=== PATIENT | male | born 1945 | race Caucasian/White ===

== ENCOUNTER 2017-07-08 13:27 | Day surgery (SDC) | payer MEDICARE, SELFPAY ==
[2017-07-08] VITALS (7 sets, daily range): BP systolic 110–170; BP diastolic 66–82; PULSE 72–83; RESP 16–18; TEMP 36–36.2; O2SAT 93–96; BMI 50.3
[2017-07-08 14:06] LABS: Bedside Glucose 265 mg/dL (70-110)
--- NOTE | 2017-07-08 14:30 | RAD_ITS ---
STUDY: X-RAY - LUMBAR SPINE REASON FOR EXAM: Male, 72 years old. Radiofrequency ablation. TECHNIQUE: 9 intraoperative view(s) of the lumbar spine were obtained. COMPARISON: MRI July 16, 2016. FINDINGS: Intraoperative fluoroscopy utilized for 0 minutes 18.4 seconds during radiofrequency ablation with placement of 4 needles. RAD/Lumbar Spine 2 or 3 Views IMPRESSION: Intraoperative fluoroscopy. Electronically Signed: Varghese Walters MD at 16:38 EST , Service support ,
[2017-07-08] MEDS: Bupivacaine 0.25% 30 ML Vial (14:41)
[2017-07-08] MEDS: MethylPREDNISolone Acetate 80 MG/ML Vial (14:41)
--- NOTE | 2017-07-08 16:19 | PCM.OPRPT ---
Problem List (1) Lumbar degenerative disc disease Status: Chronic (2) Lumbar facet arthropathy Status: Chronic (3) Lumbar spondylosis Status: Chronic Report of Operation Date of Procedure: 07/08/17 Pre-Operative Diagnosis: Lumbosacral spondylosis, lumbosacral degenerative disc disease, lumbar facet arthropathy Post-Operative Diagnosis: Lumbosacral spondylosis, lumbosacral degenerative disc disease, lumbar facet arthropathy Surgery/Procedure Performed:: Left-sided lumbar radiofrequency ablation of the medial branch L3, L4, L5, S1. Description of Surgical Findings:: PROCEDURE: Left-sided radiofrequency ablation of the medial branch L3, L4, L5, S1 PREOPERATIVE DIAGNOSES: Lumbosacral spondylosis, lumbosacral degenerative disc disease, lumbar facet arthropathy POSTOPERATIVE DIAGNOSES: Lumbosacral spondylosis, lumbosacral degenerative disc disease, lumbar facet arthropathy ANESTHESIA: MAC COMPLICATIONS: None BLOOD LOSS: Minimal PROCEDURE IN DETAIL: History and physical today was reviewed. Risks and benefits of procedure explained. The patient understood, agreed to the procedure and informed consent was obtained. IV inserted per routine protocol. The patient was taken to the operating room, placed in the prone position with a pillow positioned underneath the abdomen. The left side of the lower back was prepped and draped in a sterile fashion using iodine x 3. Under fluoroscopy guidance, on an oblique view, the L3 through S1 vertebral bodies were visualized. The skin and subcutaneous tissue was anesthetized with approximately 10 mL of 1% lidocaine using a 25-gauge regular needle. Under direct visualization with fluoroscopy at approximately 25-degree angle, starting on the left L3, ending on the left S1 passing through the L4-L5 using a 20-gauge 15 cm with a 10 mm curved active tip radiofrequency ablation needle the needle passed through the skin. The tip of the needle was maneuvered and directed towards the superior and medial gutter of the transverse process at the vicinity of the medial branch. Once the tip of the needle was in contact with the bone, the needle pulled approximately 2 mm up the bone. The stylet of each needle was then removed. After negative aspiration of blood with CSF and confirmation of AP as well as oblique view, radiofrequency ablation probe was then inserted at each level. Impedance was then recorded at L3 to be 222, at L4 254, at L5 257, at S1 215 ohm. Motor-evoked potential was then initiated to 1.5 volt without any motor response at each corresponding level. The probe was then removed intact and a total of 6 mL preservative-free 1% lidocaine was injected in divided doses between those 4 levels after negative aspiration of blood with CSF. The radiofrequency ablation probe was then reinserted after confirmation of AP, oblique as well as lateral view. Radiofrequency ablation was then initiated to 80 degrees Celsius for 90 seconds at each level. Once concluded, the probe was then removed intact and a total of 6 mL of preservative-free 0.25% Marcaine with 40 mg Depo-Medrol was injected in divided doses between those 4 levels. The needles were then removed intact. The patient experienced no signs or symptoms of intrathecal, intravascular injection. The patient experienced no paraesthesia. The procedure was completed without any apparent difficulty, any complication. The patient appeared to tolerate well. Sensory as well as motor exam was unchanged from prior to procedure. ASSESSMENT AND PLAN: This is a 72-year-old Male with lumbosacral spondylosis, lumbosacral degenerative disc disease, lumbar facet arthropathy, status post left-sided radiofrequency ablation of the medial branch L3 through S1. The patient will continue his current medications. The patient will follow up in approximately 2 weeks for reevaluation.
== END 2017-07-08 15:50 | disposition home or self-care (01) ==
LOC: SDC 13:28 → AC 13:29
PROVIDERS: Family Provider Family Medicine; PCP Family Medicine; Visit Provider Anesthesiology Pain Medicine
PROC: (CPT 64635; principal; 2017-07-08 15:10)
DX: M51.36 Other intervertebral disc degeneration, lumbar region (principal); M46.96 Unspecified inflammatory spondylopathy, lumbar region; M47.896 Other spondylosis, lumbar region; M51.37 Other intervertebral disc degeneration, lumbosacral region; M48.07 Spinal stenosis, lumbosacral region; M54.17 Radiculopathy, lumbosacral region; I10 Essential (primary) hypertension; Z87.891 Personal history of nicotine dependence; E11.9 Type 2 diabetes mellitus without complications; Z79.4 Long term (current) use of insulin; Z79.84 Long term (current) use of oral hypoglycemic drugs; K21.9 Gastro-esophageal reflux disease without esophagitis; G47.33 Obstructive sleep apnea (adult) (pediatric); E78.00 Pure hypercholesterolemia, unspecified; Z86.711 Personal history of pulmonary embolism; Z79.82 Long term (current) use of aspirin; Z79.891 Long term (current) use of opiate analgesic; Z79.899 Other long term (current) drug therapy
CPT/HCPCS: 64635; 64636 ×2; 72100; 76000; 82962; J7120

== ENCOUNTER 2017-08-19 05:31 | Day surgery (SDC) | payer MEDICARE, SELFPAY ==
[2017-08-19 06:11] VITALS: BP 153/73; PULSE 64; TEMP 36.4; O2SAT 95; BMI 50.9
[2017-08-19 06:26] LABS: Bedside Glucose 102 mg/dL (70-110)
--- NOTE | 2017-08-19 07:30 | RAD_ITS ---
CLINICAL HISTORY: Male, 72 years old. Lower back pain PROCEDURE: EPIDUROGRAM -LATERAL BLOOD BRANCH BLOCK BLOCK FLUOROSCOPY TIME (if supplied): (0:26) minutes. 2 Images. RADIATION DOSAGE (If Supplied By Facility): CTDIvol = ( ) mGy, DLP = ( ) mGycm TECHNIQUE: 3 needles are seen with the tip projecting at the lateral pedicles of L3, L4, L5-S1 RAD/Lumbar Spine 2 or 3 Views IMPRESSION: Successful 4 level lateral branch block. Electronically Signed: Gorge Middleton MD at 12:26 EDT Tel , Service support ,
[2017-08-19] MEDS: MethylPREDNISolone Acetate 80 MG/ML Vial (07:46)
[2017-08-19] MEDS: Bupivacaine 0.25% 30 ML Vial (07:46)
[2017-08-19 08:04] VITALS: BP 107/57; BP 153/73; PULSE 69; RESP 18; TEMP 36.1; O2SAT 96
[2017-08-19 08:10] VITALS: BP 100/63; BP 153/73; PULSE 67; RESP 18; O2SAT 94
--- NOTE | 2017-08-19 08:10 | PCM.OPRPT ---
Problem List (1) Lumbar degenerative disc disease Status: Chronic (2) Lumbar facet arthropathy Status: Chronic (3) Lumbar spondylosis Status: Chronic Report of Operation Date of Procedure: 08/19/17 Pre-Operative Diagnosis: Lumbosacral spondylosis, lumbosacral degenerative disc disease, lumbar facet arthropathy Post-Operative Diagnosis: Lumbosacral spondylosis, lumbosacral degenerative disc disease, lumbar facet arthropathy Surgery/Procedure Performed:: Right sided lumbar radiofrequency ablation of the medial branch at L3, L4, L5, S1 Description of Surgical Findings:: PROCEDURE: Right-sided radiofrequency ablation of the medial branch L3, L4, L5, S1 PREOPERATIVE DIAGNOSES: Lumbosacral spondylosis, lumbosacral degenerative disc disease, lumbar facet arthropathy POSTOPERATIVE DIAGNOSES: Lumbosacral spondylosis, lumbosacral degenerative disc disease, lumbar facet arthropathy ANESTHESIA: MAC COMPLICATIONS: None BLOOD LOSS: Minimal PROCEDURE IN DETAIL: History and physical today was reviewed. Risks and benefits of procedure explained. The patient understood, agreed to the procedure and informed consent was obtained. IV inserted per routine protocol. The patient was taken to the operating room, placed in the prone position with a pillow positioned underneath the abdomen. The right side of the lower back was prepped and draped in a sterile fashion using iodine x 3. Under fluoroscopy guidance, on an oblique view, the L3 through S1 vertebral bodies were visualized. The skin and subcutaneous tissue was anesthetized with approximately 10 mL of 1% lidocaine using a 25-gauge regular needle. Under direct visualization with fluoroscopy at approximately 25-degree angle, starting on the right L3, ending on the right S1 passing through the L4-L5 using a 20-gauge 15 cm with a 10 mm curved active tip radiofrequency ablation needle the needle passed through the skin. The tip of the needle was maneuvered and directed towards the superior and medial gutter of the transverse process at the vicinity of the medial branch. Once the tip of the needle was in contact with the bone, the needle pulled approximately 2 mm up the bone. The stylet of each needle was then removed. After negative aspiration of blood with CSF and confirmation of AP, lateral as well as oblique view, radiofrequency ablation probe was then inserted at each level. Impedance was then recorded at L3 to be 273, at L4 274, at L5 210, at S1 259 ohm. Motor-evoked potential was then initiated to 1.5 volt without any motor response at each corresponding level. The probe was then removed intact and a total of 6 mL preservative-free 1% lidocaine was injected in divided doses between those 4 levels after negative aspiration of blood with CSF. The radiofrequency ablation probe was then reinserted after confirmation of AP, oblique as well as lateral view. Radiofrequency ablation was then initiated to 80 degrees Celsius for 90 seconds at each level. Once concluded, the probe was then removed intact and a total of 6 mL of preservative-free 0.25% Marcaine with 40 mg Depo-Medrol was injected in divided doses between those 4 levels. The needles were then removed intact. The patient experienced no signs or symptoms of intrathecal, intravascular injection. The patient experienced no paraesthesia. The procedure was completed without any apparent difficulty, any complication. The patient appeared to tolerate well. Sensory as well as motor exam was unchanged from prior to procedure. ASSESSMENT AND PLAN: This is a 72-year-old Male with lumbosacral spondylosis, lumbosacral degenerative disc disease, lumbar facet arthropathy, status post right-sided radiofrequency ablation of the medial branch L3 through S1. The patient will continue his current medications. The patient will follow up in approximately 2 weeks for reevaluation.
[2017-08-19 08:15] VITALS: BP 123/61; BP 153/73; PULSE 68; RESP 18; O2SAT 93
[2017-08-19 08:20] VITALS: BP 114/64; BP 153/73; PULSE 66; RESP 18; TEMP 36.2; O2SAT 94
[2017-08-19 08:43] VITALS: BP 153/73
== END 2017-08-19 09:16 | disposition home or self-care (01) ==
LOC: SDC 05:32 → AC 05:33
PROVIDERS: Family Provider Family Medicine; PCP Family Medicine; Visit Provider Anesthesiology Pain Medicine
PROC: (CPT 62282; principal; 2017-08-19 07:15)
DX: M47.817 Spondylosis without myelopathy or radiculopathy, lumbosacral region (principal); M51.37 Other intervertebral disc degeneration, lumbosacral region; M48.07 Spinal stenosis, lumbosacral region; M46.96 Unspecified inflammatory spondylopathy, lumbar region; M79.1 Myalgia; I10 Essential (primary) hypertension; E11.9 Type 2 diabetes mellitus without complications; E78.00 Pure hypercholesterolemia, unspecified; G47.33 Obstructive sleep apnea (adult) (pediatric); Z87.891 Personal history of nicotine dependence; Z79.891 Long term (current) use of opiate analgesic; Z86.711 Personal history of pulmonary embolism
CPT/HCPCS: 62282 ×4; 72100; 76000; 82962; J7120

== ENCOUNTER 2017-11-18 10:04 | Day surgery (SDC) | payer MEDICARE, SELFPAY ==
[2017-11-18 10:27] VITALS: BP 146/70; PULSE 70; RESP 18; TEMP 35.9; O2SAT 96; BMI 50.1
[2017-11-18 10:46] LABS: Bedside Glucose 293 mg/dL (70-110)
--- NOTE | 2017-11-18 11:30 | RAD_ITS ---
PROCEDURE: Caudal block. DATE OF EXAMINATION: November 18, 2017. INDICATION: Male, 72 years old. FLUOROSCOPY TIME (if supplied): (0:09) minutes/seconds A caudal block was performed by the pain management physician. RAD/Fluor Guidance for Spine Inj IMPRESSION: Fluoroscopic services provided for caudal block. Electronically Signed: Ayo Torrez MD at 14:47 EDT Tel [phone], Service support ,
[2017-11-18] MEDS: MethylPREDNISolone Acetate 80 MG/ML Vial (11:43)
[2017-11-18] MEDS: Bupivacaine 0.25% 30 ML Vial (11:43)
[2017-11-18 11:50] VITALS: BP 116/77; BP 146/70; PULSE 71; RESP 16; TEMP 35.8; O2SAT 94
[2017-11-18 11:55] VITALS: BP 123/74; BP 146/70; PULSE 71; RESP 16; O2SAT 94
[2017-11-18 12:00] VITALS: BP 146/70; BP 95/58; PULSE 73; RESP 16; O2SAT 93
[2017-11-18 12:05] VITALS: BP 130/85; BP 146/70; PULSE 75; RESP 16; TEMP 36; O2SAT 94
[2017-11-18 12:30] VITALS: BP 146/70
--- NOTE | 2017-11-18 13:19 | PCM.OPRPT ---
Problem List (1) Radiculopathy of lumbosacral region Status: Chronic (2) Lumbar degenerative disc disease Status: Chronic Report of Operation Date of Procedure: 11/18/17 Pre-Operative Diagnosis: Lumbosacral radiculopathy, lumbosacral degenerative disc disease, lumbosacral spinal stenosis Post-Operative Diagnosis: Lumbosacral radiculopathy, lumbosacral degenerative disc disease, lumbar sacral spinal stenosis Surgery/Procedure Performed:: Caudal epidural steroid injection Description of Surgical Findings:: PROCEDURE: Caudal epidural steroid injection PREOPERATIVE DIAGNOSIS: Lumbosacral radiculopathy, lumbosacral degenerative disc disease, lumbosacral spinal stenosis POSTOPERATIVE DIAGNOSIS: Lumbosacral radiculopathy, lumbosacral degenerative disc disease, lumbosacral spinal stenosis ANESTHESIA: MAC COMPLICATIONS: None BLOOD LOSS: Minimal PROCEDURE IN DETAIL: History and physical today was reviewed. Risks and benefits of the procedure were explained. The patient understood, agreed to our procedure, and informed consent was obtained. IV inserted per routine protocol. The patient was taken to the operating room, placed in a prone position with a pillow positioned underneath the abdomen. The lower back and tailbone area was prepped and draped in a sterile fashion using iodine ?3 under direct visualization fluoroscopy on the lateral view the caudal space was identified the skin and subcutaneous tissue and size approximately 3 cc of 1% lidocaine using a 25-gauge regular needle under direct visualization with fluoroscopy on the lateral view using a 22-gauge 3-1/2 inch spinal needle the needle was advanced via the skin through the sacral hiatus the peroneal passed through the sacrococcygeal ligament advanced approximately S4 area after negative aspiration of blood or CSF a total of 3 cc of contrast were injected to confirm correct placement of the needle as well as cephalad spread spread was followed to approximately L5 area after confirmation AP as well as lateral view and repeated negative aspiration a total of 15 cc of preservative-free 0.125% Marcaine with 80 mg of the portal was injected easily. The needles were then removed intact. The patient experienced no signs or symptoms intrathecal, intravascular injection. The patient experienced no paraesthesia. The procedure was completed without any apparent difficult, any complication. The patient appeared to tolerate well. ASSESSMENT AND PLAN: This is a 72-year-old male with lumbosacral radiculopathy lumbosacral degenerative disc disease lumbosacral spinal stenosis status post caudal epidural steroid injection. The patient will continue his current medications. The patient will follow in approximately 2 weeks for possible repeat of the procedure if indicated.
== END 2017-11-18 12:35 | disposition home or self-care (01) ==
LOC: SDC 10:04 → AC 10:06
PROVIDERS: Family Provider Family Medicine; PCP Family Medicine; Visit Provider Anesthesiology Pain Medicine
PROC: 3E0S3BZ Introduction of Anesthetic Agent into Epidural Space, Percutaneous Approach (ICD-10-PCS; CPT 62282; principal; 2017-11-18 11:25)
DX: M51.17 Intervertebral disc disorders with radiculopathy, lumbosacral region (principal); M48.061 Spinal stenosis, lumbar region without neurogenic claudication; I10 Essential (primary) hypertension; Z87.891 Personal history of nicotine dependence; E78.00 Pure hypercholesterolemia, unspecified; K21.9 Gastro-esophageal reflux disease without esophagitis; E11.9 Type 2 diabetes mellitus without complications; Z79.4 Long term (current) use of insulin; Z86.711 Personal history of pulmonary embolism; G47.33 Obstructive sleep apnea (adult) (pediatric)
CPT/HCPCS: 64483; 77003; 82962; J7120; J3490

== ENCOUNTER 2019-02-02 09:06 | Day surgery (SDC) | payer MEDICARE, SELFPAY ==
[2019-02-02] VITALS (8 sets, daily range): BP systolic 87–133; BP diastolic 51–84; PULSE 55–63; RESP 16–18; TEMP 36–36.2; O2SAT 92–96; BMI 47.0
[2019-02-02] MEDS: Lactated Ringers 1,000 ML 100 ML IV (10:07)
[2019-02-02 10:40] LABS: Bedside Glucose 87 mg/dL (70-110)
--- NOTE | 2019-02-02 10:50 | RAD_ITS ---
PROCEDURE: Facet joint block. DATE OF EXAMINATION: February 02, 2019. INDICATION: Male, 73 years old. Back pain. FLUOROSCOPY TIME (if supplied): (0:18) minutes/seconds. 4 views were obtained. Intraoperative fluoroscopic services provided for right T4-T7 facet joint block. RAD/Thoracic Spine Min 4 Views IMPRESSION: Intraoperative fluoroscopy provided for right T4-T7 facet joint block. Electronically Signed: Ayo Torrez, at 15:22 EDT , Service support ,
[2019-02-02] MEDS: MethylPREDNISolone Acetate 80 MG/ML Vial (10:55)
[2019-02-02] MEDS: Bupivacaine 0.25% 30 ML Vial (10:55)
--- NOTE | 2019-02-02 13:35 | OP.PCM_ITS ---
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 Risks and benefits of the procedure were explained. The patient understood, agreed to our procedure, and informed consent was obtained. IV inserted per routine protocol. The patient was taken to the operating room, placed in a prone position with a pillow positioned underneath the abdomen. The right side of the upper back was prepped and draped in a sterile fashion using iodine x3. Under fluoroscopy guidance, on AP view, T4 throughT7 vertebral bodies were visualized. Skin and subcutaneous tissues were anesthetized with approximately 5 mL of 1% lidocaine using a 25-gauge regular needle. Under direct visualization with fluoroscopy at approximately 15-degree angle, starting on the right T4, ending on the right T7 , passing through the T5 and T6 using a 25 gauge 3 1/2-inch spinal needle, the needle was advanced via the skin. The tip of the needle was maneuvered and directed towards the epiphyseal junction of each corresponding vertebra once the tip of the needle was at the vicinity of the medial branch. Once the tip of the needle was in contact with the bone, the needle pulled approximately 2 mm off the bone. After negative aspiration of blood with CSF and confirmation of AP as well as oblique view, a total of 6 mL of preservative-free 0.25% Marcaine with 80 mg of Depo- Medrol was injection in divided doses between those 4 levels. The needles were then removed intact. The patient experienced no signs or symptoms intrathecal, intravascular injection. The patient experienced no paraesthesia. The procedure was completed without any apparent difficult, any complication. The patient appeared to tolerate well. ASSESSMENT AND PLAN: This is a 73-year-old male with Thoracic spondylosis, thoracic degenerative disc disease, thoracic facet arthropathy, status post right-sided thoracic facet steroid injection T4-T7. The patient will continue his current medications. The patient will follow in approximately 2 weeks for reevaluation.
== END 2019-02-02 12:06 | disposition home or self-care (01) ==
LOC: SDC 09:10 → AC 09:36
PROVIDERS: Family Provider Family Medicine; PCP Family Medicine; Referring Provider Anesthesiology Pain Medicine; Visit Provider Anesthesiology Pain Medicine
PROC: 3E0R3BZ Introduction of Anesthetic Agent into Spinal Canal, Percutaneous Approach (ICD-10-PCS; CPT 62281; principal; 2019-02-02 10:45)
DX: M47.814 Spondylosis without myelopathy or radiculopathy, thoracic region (principal); M51.34 Other intervertebral disc degeneration, thoracic region; M46.94 Unspecified inflammatory spondylopathy, thoracic region; M48.07 Spinal stenosis, lumbosacral region; M51.17 Intervertebral disc disorders with radiculopathy, lumbosacral region; M47.27 Other spondylosis with radiculopathy, lumbosacral region; M46.96 Unspecified inflammatory spondylopathy, lumbar region; I10 Essential (primary) hypertension; E11.9 Type 2 diabetes mellitus without complications; G47.33 Obstructive sleep apnea (adult) (pediatric); K21.9 Gastro-esophageal reflux disease without esophagitis; E78.00 Pure hypercholesterolemia, unspecified; N32.81 Overactive bladder; Z86.711 Personal history of pulmonary embolism; Z79.84 Long term (current) use of oral hypoglycemic drugs; Z79.82 Long term (current) use of aspirin; Z79.891 Long term (current) use of opiate analgesic; Z79.899 Other long term (current) drug therapy; Z87.891 Personal history of nicotine dependence
CPT/HCPCS: 64490; 64491; 64492; 72074; 82962; J7120

== ENCOUNTER 2019-03-09 07:51 | Day surgery (SDC) | payer MEDICARE, SELFPAY ==
[2019-02-02 09:53] VITALS: BMI 47.0
[2019-03-09] VITALS (7 sets, daily range): BP systolic 94–119; BP diastolic 57–81; PULSE 75–81; RESP 16–18; TEMP 36.1–36.3; O2SAT 92–94; BMI 45.5
[2019-03-09] MEDS: Lactated Ringers 1,000 ML 100 ML IV (09:12)
[2019-03-09 09:15] LABS: Bedside Glucose 123 mg/dL (70-110)
--- NOTE | 2019-03-09 09:17 | RAD_ITS ---
STUDY: X-RAY - LUMBAR SPINE REASON FOR EXAM: Male, 73 years old. L4-S1 left lumbar facet steroid injection. TECHNIQUE: 3 coned-down intraoperative view(s) of the lumbar spine were obtained. COMPARISON: None FINDINGS: Spinal needles are seen overlying the L4-L5 and L5-S1 levels on the left side. RAD/Lumbar Spine 2 or 3 Views IMPRESSION: Intraoperative imaging provided for steroid facet joint block as described. Electronically Signed: Ayo Torrez, at 14:07 EDT , Service support ,
--- NOTE | 2019-03-09 09:17 | RAD_ITS ---
STUDY: X-RAY - LUMBAR SPINE REASON FOR EXAM: Male, 73 years old. Facet joint steroid block. TECHNIQUE: 2 coned-down intraoperative view(s) of the lumbar spine were obtained. COMPARISON: None FINDINGS: Intraoperative imaging provided for right L4 S1 facet block. RAD/Lumbar Spine 2 or 3 Views IMPRESSION: Intraoperative images provided for right L4 S1 facet block. Electronically Signed: Ayo Torrez, at 14:06 EDT , Service support ,
[2019-03-09] MEDS: Bupivacaine 0.25% 30 ML Vial (09:27)
[2019-03-09] MEDS: MethylPREDNISolone Acetate 80 MG/ML Vial (09:27)
--- NOTE | 2019-03-09 13:20 | OP.PCM_ITS ---
Report of Operation Date of Procedure: 03/09/19 Description of Surgical Findings:: PROCEDURE PERFORMED: Bilateral lumbar facet steroid injection, L4, L5, and S1. Preoperative diagnosis: Lumbosacral spondylosis, lumbosacral degenerative disc disease, lumbar facet arthropathy Postoperative diagnosis: Lumbosacral spondylosis, lumbosacral degenerative disc disease, lumbar facet arthropathy ANESTHESIA: MAC. BLOOD LOSS: Minimal. COMPLICATIONS: None. DESCRIPTION OF PROCEDURE: History and physical of today was reviewed. Risks and benefits of the procedure were explained. The patient understood and agreed to proceed. Informed consent was obtained. IV inserted per routine protocol. The patient was taken to the operating room and placed in the prone position with a pillow positioned underneath the abdomen. The lower back area was prepped and draped in a sterile fashion using iodine x3. Under fluoroscopy guidance on AP view, the L4 through S1 vertebral bodies were visualized. The skin and subcutaneous tissue was anesthetized with approximately 5 mL of 1% lidocaine using a 25-gauge regular needle. Under direct visualization with fluoroscopy, at approximately 25-degree angle, starting on the left L4, ending on the right L4, passing through the L5 and S1 bilaterally, using a 22-gauge 3-1/2-inch spinal needle, the needle was advanced via the skin. The tip of the needle was maneuvered and directed towards the superior medial gutter of the transverse process at the vicinity of the medial branch. Once tip of the needle was in contact with the bone, the needle was pulled approximately 2 mm off the bone. After negative aspiration for blood or CSF and confirmation on AP, oblique as well as lateral view, a total of 12 mL of preservative-free 0.25% Marcaine with 80 mg of Depo-Medrol was injected in divided doses between those six levels. The needles were then removed intact. The patient experienced no sign or symptoms of intrathecal or intravascular injection. The patient experienced no paresthesia. The procedure was completed without any apparent difficulty or any complications. The patient appeared to tolerate it well. ASSESSMENT AND PLAN: This is a 73-year-old male with lumbosacral spondylosis, lumbosacral degen erative disc disease, lumbar facet arthropathy status post bilateral lumbar facet steroid injection L4-S1, patient will continue his current medications, patient will follow approximately 2 weeks for reevaluation.
== END 2019-03-09 10:20 | disposition home or self-care (01) ==
LOC: SDC 07:55 → AC 07:57
PROVIDERS: Family Provider Family Medicine; PCP Family Medicine; Referring Provider Anesthesiology Pain Medicine; Visit Provider Anesthesiology Pain Medicine
PROC: 3E0T3BZ Introduction of Anesthetic Agent into Peripheral Nerves and Plexi, Percutaneous Approach (ICD-10-PCS; CPT 64484; principal; 2019-03-09 09:35)
DX: M48.07 Spinal stenosis, lumbosacral region (principal); M51.37 Other intervertebral disc degeneration, lumbosacral region; M47.817 Spondylosis without myelopathy or radiculopathy, lumbosacral region; M54.17 Radiculopathy, lumbosacral region; M46.96 Unspecified inflammatory spondylopathy, lumbar region; M79.10 Myalgia, unspecified site; M47.814 Spondylosis without myelopathy or radiculopathy, thoracic region; Z79.891 Long term (current) use of opiate analgesic; I10 Essential (primary) hypertension; E11.9 Type 2 diabetes mellitus without complications; G47.33 Obstructive sleep apnea (adult) (pediatric); Z87.891 Personal history of nicotine dependence; Z79.82 Long term (current) use of aspirin; Z86.718 Personal history of other venous thrombosis and embolism; Z86.711 Personal history of pulmonary embolism
CPT/HCPCS: 64484; 64483; 72100; 82962; J7120

== ENCOUNTER 2020-01-04 08:12 | Day surgery (SDC) | payer MEDICARE, SELFPAY ==
[2019-03-09 08:25] VITALS: BMI 45.5
[2020-01-04 08:44] VITALS: BP 106/50; PULSE 72; RESP 16; TEMP 35.6; O2SAT 97; BMI 43.7
[2020-01-04] MEDS: Lactated Ringers 1,000 ML 100 ML IV (09:07)
[2020-01-04 09:26] LABS: Bedside Glucose 170 mg/dL (70-110)
[2020-01-04] MEDS: MethylPREDNISolone Acetate 80 MG/ML Vial (09:42)
[2020-01-04] MEDS: Bupivacaine 0.25% 30 ML Vial (09:42)
--- NOTE | 2020-01-04 09:50 | RAD_ITS ---
STUDY: X-RAY - LUMBAR SPINE REASON FOR EXAM: Male, 74 years old. BLOCK, LUMBAR FACE, L3-S1, RIGHT TECHNIQUE: 4 limited intraoperative view(s) of the lumbar spine were obtained. COMPARISON: None FINDINGS: 4 limited intraoperative films of the lumbar spine were performed as patient has undergone lumbar block from L3 to S1. RAD/Lumbar Spine 2 or 3 Views IMPRESSION: L3-S1 facet joint block Electronically Signed: Alex Ross MD at 13:25 EDT , Service support ,
[2020-01-04 10:05] VITALS: BP 106/50; BP 108/52; PULSE 59; RESP 16; TEMP 36.1; O2SAT 95
[2020-01-04 10:10] VITALS: BP 100/55; BP 106/50; PULSE 60; RESP 16; O2SAT 97
[2020-01-04 10:15] VITALS: BP 106/50; BP 108/67; PULSE 40; RESP 16; O2SAT 97
[2020-01-04 10:20] VITALS: BP 106/50; BP 125/69; PULSE 75; RESP 16; O2SAT 96
--- NOTE | 2020-01-04 10:20 | PCM.OPRPT ---
Report of Operation Date of Procedure: 01/04/20 Description of Surgical Findings:: PREOPERATIVE DIAGNOSIS: Lumbosacral spondylosis, lumbosacral degenerative disc disease, lumbar facet arthropathy POSTOPERATIVE DIAGNOSIS: Lumbosacral spondylosis, lumbosacral degenerative disc disease, lumbar facet arthropathy PROCEDURE PERFORMED: Right-sided lumbar facet steroid injection, L3, L4, L5, and S1. ANESTHESIA: MAC. BLOOD LOSS: Minimal. COMPLICATIONS: None. DESCRIPTION OF PROCEDURE: History and physical of today was reviewed. Risks and benefits of the procedure were explained. The patient understood and agreed to proceed. Informed consent was obtained. IV inserted per routine protocol. The patient was taken to the operating room and placed in the prone position with a pillow positioned underneath the abdomen. The Right side of her lower back was prepped and draped in a sterile fashion using iodine x3. Under fluoroscopy on oblique view, the L3 through S1 vertebral bodies were visualized. The skin and subcutaneous tissue was anesthetized with approximately 5 mL of 1% lidocaine using a 25-gauge regular needle. Under direct visualization with fluoroscopy, at approximately 25-degree angle starting on the Right L3, ending on the Right S1, passing through the L4 and L5, using a 22-gauge 3-1/2-inch spinal needle, the needle was advanced via the skin. The tip of the needle was maneuvered and directed towards the superior medial gutter of the transverse process at the vicinity of the medial branch. Once tip of the needle was in contact with the bone, the needle was pulled approximately 2 mm off the bone. After negative aspiration of blood or CSF and confirmation on AP as well as oblique view, a total of 8 mL of preservative-free 0.25% Marcaine with 80 mg of Depo-Medrol was injected in divided doses between those four levels. The needles were then removed intact. The patient experienced no sign or symptoms of intrathecal or intravascular injection. The patient experienced no paresthesia. The procedure was completed without any apparent difficulty or any complications. The patient appeared to tolerate it well. ASSESSMENT AND PLAN: This is a 74-year-old male with lumbosacral spondylosis, lumbosacral degenerative disc disease, lumbar facet arthropathy status post right-sided lumbar facet steroid injection L3-S1, patient will continue his current medications, patient will follow approximately 2 weeks for reevaluation.
[2020-01-04 10:21] VITALS: BP 106/50; BP 132/70; PULSE 60; RESP 16; TEMP 36.1; O2SAT 95
== END 2020-01-04 10:55 | disposition home or self-care (01) ==
LOC: SDC 08:15 → AC 08:20
PROVIDERS: PCP Student in an Organized Health Care Education/Training Program; Referring Provider Anesthesiology Pain Medicine; Visit Provider Anesthesiology Pain Medicine
PROC: 3E0T3BZ Introduction of Anesthetic Agent into Peripheral Nerves and Plexi, Percutaneous Approach (ICD-10-PCS; CPT 64493; principal; 2020-01-04 10:15)
DX: M51.17 Intervertebral disc disorders with radiculopathy, lumbosacral region (principal); M47.27 Other spondylosis with radiculopathy, lumbosacral region; M48.07 Spinal stenosis, lumbosacral region; M47.814 Spondylosis without myelopathy or radiculopathy, thoracic region; I10 Essential (primary) hypertension; E11.9 Type 2 diabetes mellitus without complications; G47.30 Sleep apnea, unspecified; K21.9 Gastro-esophageal reflux disease without esophagitis; E78.00 Pure hypercholesterolemia, unspecified; Z86.718 Personal history of other venous thrombosis and embolism; Z87.891 Personal history of nicotine dependence; Z79.891 Long term (current) use of opiate analgesic; Z79.4 Long term (current) use of insulin; Z79.899 Other long term (current) drug therapy
CPT/HCPCS: 64493; 64494; 64483; 72100; 82962; J7120